=== PATIENT | male | born 1965 | race African-American/Black ===

== ENCOUNTER 2017-02-11 21:47 | Emergency (ER) | payer MEDICAID ==
[~2017-02-11] VITALS: Ht 172.7 cm; Wt 88.0 kg
[2017-02-11] MEDS ORDERED: MORPHINE SULFATE 4 MG/ML CPJ (NOT FOR IM USE) IV STA (23:05)
[2017-02-11] MEDS ORDERED: ONDANSETRON HCL 4MG/2ML VIAL IV STA (23:05)
[2017-02-11] MEDS ORDERED: ASPIRIN 81MG TABLET PO ONE (23:15)
[2017-02-11 23:48] LABS: BASOPHILS % 0.7 % (0.0-2.0); EOSINOPHILS % 4.1 % (0.0-5.0); HEMATOCRIT. 39.4 % (42.0-52.0); HEMOGLOBIN. 13.3 g/dL (14.0-18.0); LYMPHOCYTES % 43.2 % (20.0-50.0); MEAN CORPUSCULAR HEMOGLOBIN 31.1 pg (28.0-32.0); MEAN PLATELET VOLUME 8.3 fl (7.4-10.4); MONOCYTES % 11.1 % (2.0-8.0); NEUTROPHILS % 40.9 % (40.0-76.0); PLATELET 214 x1000/uL (130-400); RED BLOOD CELL COUNT 4.29 mill/uL (4.7-6.1); RED CELL DISTRIBUTION WIDTH 13.1 % (11.6-14.6)
[2017-02-11 23:56] LABS: PROTHROMBIN TIME 10.8 sec (9.4-11.6)
[2017-02-12] MEDS: MORPHINE SULFATE 2 MG/ML CPJ (NOT FOR IM USE) IV SCH ×2 (00:01→00:12)
[2017-02-12 00:14] LABS: CARBON DIOXIDE 25 mEq/L (21-32); CHLORIDE 105 mEq/L (98-107); ETHANOL BLOOD < 10 mg/dL
[2017-02-12 00:16] LABS: AMMONIA 33 uMol/L (<32)
[2017-02-12 00:18] LABS: TROPONIN I < 0.02 ng/mL (0.00-0.04)
[2017-02-12 00:51] LABS: *AMPHETAMINES SCREEN URINE NEGATIVE (NEGATIVE); *BARBITURATES SCREEN URINE NEGATIVE (NEGATIVE); *BENZODIAZEPINES SCREEN URINE NEGATIVE (NEGATIVE); *COCAINE SCREEN URINE NEGATIVE (NEGATIVE); CANNABINOID URINE SCREEN NEGATIVE (NEGATIVE); METHADONE URINE SCREEN NEGATIVE (NEGATIVE); OPIATES URINE SCREEN PRESUMTIVE POSITIVE (NEGATIVE); PHENCYCLIDINE URINE SCREEN NEGATIVE (NEGATIVE)
[2017-02-12] MEDS ORDERED: LACTULOSE 20G/30ML UDC PO SCH (01:30)
[2017-02-12] MEDS ORDERED: FENTANYL CITRATE/PF 50MCG/ML 2ML VIAL IV ONE (01:30)
[2017-02-12 03:00] VITALS: BP 146/71
== END 2017-02-12 03:31 | disposition home or self-care (01) ==
LOC: ER 21:47
DX: N40.0 Benign prostatic hyperplasia without lower urinary tract symptoms (principal); K74.60 Unspecified cirrhosis of liver; R20.0 Anesthesia of skin; R51 Headache
CPT/HCPCS: 36415; 70450; 71010; 80053; 80305; 82140; 83880; 84484; 85025; 85610; 93005; 96374; 96375; 99285; G0482; J2270; J2405; J3010; Z7610